=== PATIENT | male | born 1965 | race Caucasian/White ===

== ENCOUNTER 2016-09-29 07:47 | Emergency (ER) | payer OTHER ==
[~2016-09-29] VITALS: Ht 160 cm; Wt 56.7 kg
[2016-09-29] MEDS ORDERED: Tylenol #3 tab (300mg/30mg) PO ONE (08:30)
[2016-09-29 08:45] VITALS: BP 125/78
[2016-09-29] MEDS ORDERED: ACETAMINOPHEN-1 EAC1 ORAL (09:27)
--- NOTE | 2016-09-29 09:40 | Emergency Room Report ---
History of Present Illness General Chief Complaint: Multiple Trauma/Fall Source: Patient Present Illness HPI 51-year-old male presents ED complaining of left side of her pain. States he tripped and fell in the shower today hitting his left side of ribs against the bathtub. Denies LOC. Denies hitting his head. Denies any other injuries. A 10 out of 10 pain to left side of ribs, worse with deep breath, sharp. Nonradiating. No other aggravating or relieving factors. Denies any other associated symptoms Allergies: Coded Allergies: No Known Allergies (Unverified , 09/29/16) Patient History Past Medical History: GERD Past Surgical History: none Pertinent Family History: none Social History: Denies: alcohol use, drug use, smoking Immunizations: UTD Reviewed Nursing Documentation: PMH: Agreed, PSxH: Agreed Nursing Documentation-PMH Hx Gastrointestinal Problems: Yes - acid reflux Review of Systems All Other Systems: negative except mentioned in HPI Physical Exam Vital Signs Date Time Temp Pulse Resp B/P Pulse Ox O2 Delivery O2 Flow Rate FiO2 09/29/16 08:04 97.2 89 16 129/84 98 Room Air Sp02 EP Interpretation: reviewed, normal General Appearance: no apparent distress, alert, GCS 15, non-toxic Head: normocephalic Eyes: bilateral eye PERRL, bilateral eye normal inspection ENT: normal ENT inspection Neck: normal inspection Respiratory: lungs clear, normal breath sounds, speaking full sentences, other - L sided rib pain Cardiovascular #1: normal inspection Gastrointestinal: normal inspection Rectal: deferred Genitourinary: no CVA tenderness Musculoskeletal: normal inspection Neurologic: alert, oriented x3, responsive, motor strength/tone normal, sensory intact, speech normal Psychiatric: normal inspection Skin: normal inspection Lymphatic: normal inspection Medical Decision Making Diagnostic Impression: Primary Impression: Contusion of rib on left side Qualified Codes: S20.212A - Contusion of left front wall of thorax, initial encounter ER Course Hospital Course 51-year-old M presents to ED complaining of L sided rib pain s/p fall Differential diagnoses include: Fracture, dislocation, sprain, contusion Clinical course Patient placed on stretcher. After initial history and physical, I ordered pain medications and Xrays of L rib series Xrays prelim read shows no acute fracture/dislocation. no PTX. On reassessment pain is improved Diagnosis - contusion of rib on left side Stable and discharged to home with prescription for Tylenol #3. apply ice. weight bear as tolerated. Followup with PMD. Return to ED if symptoms recur or worsen Other X-Ray Diagnostic Results Other X-Ray Diagnostic Results : X-Ray ordered: L rib series # of Views/Limited Vs Complete: 3 View Indication: Pain EP Interpretation: Yes Interpretation: no dislocation, no soft tissue swelling, no fractures Impression: No acute disease Interpreting ER Provider: Electronically signed by Girish Cardenas MD Last Vital Signs Date Time Temp Pulse Resp B/P Pulse Ox O2 Delivery O2 Flow Rate FiO2 09/29/16 09:22 97.1 09/29/16 08:04 89 16 129/84 98 Room Air Status: improved Disposition: HOME, SELF-CARE Condition: Stable Scripts Acetaminophen With Codeine (T#3) (TYLENOL #3 TAB*) Y Tab 1 TAB ORAL Q8H Y for For Pain, #20 TAB Prov: GIRISH CARDENAS M.D. 09/29/16 Patient Instructions: Rib Contusion GIRISH CARDENAS M.D. Sep 29, 2016 09:40
--- NOTE | 2016-09-29 09:54 | Diagnostic Imaging Report ---
Indication: Trauma. Comparison: None Findings: 4 views of the left chest wall was obtained for evaluation of the ribs. Bony mineralization appears normal. There is no acute fracture identified. There is no soft tissue swelling demonstrated. The lung is essentially clear. The costophrenic angle is sharp. Other osseous structures visualized are unremarkable. Impression: Negative unilateral rib series
[2016-09-29 09:56] VITALS: BP 125/78
== END 2016-09-29 09:57 | disposition home or self-care (01) ==
LOC: EMR 08:14
DX: S20.212A Contusion of left front wall of thorax, initial encounter (principal); W01.0XXA Fall on same level from slipping, tripping and stumbling without subsequent striking against object, initial encounter; Y92.89 Other specified places as the place of occurrence of the external cause; K21.9 Gastro-esophageal reflux disease without esophagitis
CPT/HCPCS: 99283

== ENCOUNTER 2019-11-18 14:00 | Outpatient (CLI) | payer OTHER ==
[~2019-11-18] VITALS: Ht 157.5 cm; Wt 53.5 kg
[~2019-11-18 14:00] MED LIST: ACETAMINOPHEN-1 EAC1 ORAL
--- NOTE | 2019-11-18 15:01 | Consultation ---
DATE OF CONSULTATION: 11/18/2019 CHIEF COMPLAINT: History of colonic polyps, chronic GERD, referred for endoscopy and colonoscopy. PAST MEDICAL HISTORY: 1. Chronic GERD. 2. Colonic polyps. PAST SURGICAL HISTORY: Appendectomy, tonsillectomy. MEDICATIONS: Please see medication reconciliation list. FAMILY HISTORY: No family history of GI malignancies. SOCIAL HISTORY: The patient drinks 3 to 4 beers per day. He uses a lot of marijuana, but no tobacco. ALLERGIES: No known drug allergies. REVIEW OF SYSTEMS: No abdominal pain. PHYSICAL EXAMINATION: GENERAL: This is a well-developed male in no acute distress. HEENT: Normocephalic and atraumatic. Sclerae anicteric. NECK: Supple. No evidence of obvious lymphadenopathy. CARDIOVASCULAR: Regular rate and rhythm. Plus S1 and S2. LUNGS: Clear to auscultation bilaterally. ABDOMEN: Positive bowel sounds. Soft and nontender. No rebound. No guarding. No peritoneal sign. EXTREMITIES: No cyanosis. No clubbing. No edema. ASSESSMENT AND PLAN: This is a 54-year-old male with chronic GERD on PPI and also history of colonic polyps, needs endoscopy and colonoscopy. We will plan as soon as authorization is obtained. Trevor Barnes M.D. DR: Sulma JOB#: [id number] CC:
[2019-11-19] MEDS ORDERED: PANTOPRAZOLE SO40 MG ORAL (15:21)
[2019-11-19] MEDS ORDERED: GABAPENTIN100 MG ORAL (15:21)
[2019-11-19] MEDS ORDERED: ASPIRIN EC81 MG ORAL (15:21)
== END 2019-11-18 16:00 | disposition home or self-care (01) ==
LOC: PAN 14:00
DX: K21.9 Gastro-esophageal reflux disease without esophagitis (principal); Z86.010 Personal history of colon polyps; Z90.89 Acquired absence of other organs; F12.90 Cannabis use, unspecified, uncomplicated

== ENCOUNTER 2020-01-07 08:59 | Outpatient (CLI) | payer OTHER ==
[~2020-01-07 08:59] MED LIST changes: +ASPIRIN EC81 MG ORAL; +GABAPENTIN100 MG ORAL; +PANTOPRAZOLE SO40 MG ORAL
--- NOTE | 2020-01-07 09:54 | General Progress Note ---
Subjective ROS Limited/Unobtainable: Yes Allergies: Coded Allergies: No Known Allergies (Unverified , 09/29/16) Objective General Appearance: alert EENT: normal ENT inspection Neck: supple Cardiovascular: normal rate Respiratory/Chest: decreased breath sounds Abdomen: normal bowel sounds, non tender, soft Extremities: non-tender Assessment/Plan Assessment/Plan: GERD gastric polyp gastritis hemorrhoids s/p EGD and colonoscopy trial of tampering off ppi probiotics repeat colon in 5 years avoid ETOH Trevor Barnes MD Jan 07, 2020 09:54
== END 2020-01-07 10:59 | disposition home or self-care (01) ==
LOC: PAN 08:59
DX: K21.9 Gastro-esophageal reflux disease without esophagitis (principal); K31.7 Polyp of stomach and duodenum; K29.70 Gastritis, unspecified, without bleeding; K64.9 Unspecified hemorrhoids
CPT/HCPCS: 99212